=== PATIENT | female | born 1985 | race African-American/Black ===

== ENCOUNTER 2018-07-08 00:27 | Emergency (ER) | payer OTHER ==
[~2018-07-08] VITALS: Ht 157.5 cm; Wt 85.0 kg
[~2018-07-08 00:27] MED LIST: AZIT500T5; CIPR-263; DIF15; METR500T
[2018-07-08] MEDS ORDERED: SODIUM CHLORIDE 0.9% 1,000 ML IV ONE (00:56)
[2018-07-08 02:54] LABS: CHLORIDE 104 mEq/L (98-107)
[2018-07-08 03:00] LABS: D-DIMER 0.24 mg/L FEU (<0.50); PARTIAL THROMBOPLASTIN TIME 30.1 sec (23.4-31.0); PROTHROMBIN TIME 9.9 sec (9.1-11.1)
[2018-07-08 04:29] LABS: BASOPHILS % 0.3 % (0.0-2.0); EOSINOPHILS % 0.2 % (0.0-5.0); HEMATOCRIT. 37.9 % (36.0-48.0); HEMOGLOBIN. 11.9 g/dL (12.0-16.0); LYMPHOCYTES % 10.3 % (20.0-50.0); MEAN CORPUSCULAR HEMOGLOBIN 26.1 pg (28.0-32.0); MEAN PLATELET VOLUME 8.2 fl (7.4-10.4); MONOCYTES % 5.2 % (2.0-8.0); PLATELET 307 x1000/uL (130-400); RED BLOOD CELL COUNT 4.57 mill/uL (4.2-5.4); RED CELL DISTRIBUTION WIDTH 14.5 % (11.6-14.6)
[2018-07-08 04:33] VITALS: BP 154/83
== END 2018-07-08 05:03 | disposition home or self-care (01) ==
LOC: ER 00:27 → CANBEDREQ 08:08
DX: R07.89 Other chest pain (principal); Z98.890 Other specified postprocedural states; Z90.89 Acquired absence of other organs
CPT/HCPCS: 36415; 71045; 80053; 84484; 85025; 85379; 85610; 85730; 93005; 99284; J7030

== ENCOUNTER 2018-09-24 13:16 | Emergency (ER) | payer MEDICAID, OTHER ==
[~2018-09-24] VITALS: Ht 160 cm; Wt 89.0 kg
[2018-09-24 15:10] LABS: CLARITY URINE CLEAR (CLEAR); COLOR URINE YELLOW (YELLOW); KETONES URINE NEGATIVE (NEGATIVE); LEUKOCYTE ESTERASE URINE NEGATIVE (NEGATIVE); NITRITE URINE NEGATIVE (NEGATIVE); OCCULT BLOOD URINE NEGATIVE (NEGATIVE); PROTEIN URINE NEGATIVE (NEGATIVE); SPECIFIC GRAVITY URINE 1.004 (1.005-1.030); UROBILINOGEN URINE 0.2 E.U./dL (0.2-1.0)
[2018-09-24 16:06] VITALS: BP 152/91
== END 2018-09-24 16:14 | disposition left against medical advice (07) ==
LOC: ER 13:16
DX: Z53.21 Procedure and treatment not carried out due to patient leaving prior to being seen by health care provider (principal); F41.9 Anxiety disorder, unspecified
CPT/HCPCS: 81003; 93005; Z7610

== ENCOUNTER 2018-09-25 01:17 | Emergency (ER) | payer MEDICAID, OTHER ==
[~2018-09-25] VITALS: Ht 160 cm; Wt 88.0 kg
[2018-09-25 02:59] LABS: CLARITY URINE CLEAR (CLEAR); COLOR URINE YELLOW (YELLOW); KETONES URINE NEGATIVE (NEGATIVE); LEUKOCYTE ESTERASE URINE NEGATIVE (NEGATIVE); NITRITE URINE NEGATIVE (NEGATIVE); OCCULT BLOOD URINE NEGATIVE (NEGATIVE); PH URINE 6.5 (4.5-8.0); PROTEIN URINE NEGATIVE (NEGATIVE); SPECIFIC GRAVITY URINE 1.005 (1.005-1.030); UROBILINOGEN URINE 0.2 E.U./dL (0.2-1.0)
[2018-09-25 04:21] LABS: BASOPHILS % 0.4 % (0.0-2.0); HEMATOCRIT. 36.7 % (36.0-48.0); HEMOGLOBIN. 11.3 g/dL (12.0-16.0); LYMPHOCYTES % 19.5 % (20.0-50.0); MEAN CORPUSCULAR HEMOGLOBIN 25.1 pg (28.0-32.0); MEAN CORPUSCULAR VOLUME 81.1 fL (81.0-99.0); MEAN PLATELET VOLUME 8.4 fl (7.4-10.4); MONOCYTES % 5.4 % (2.0-8.0); NEUTROPHILS % 74.7 % (40.0-76.0); PLATELET 310 x1000/uL (130-400); RED BLOOD CELL COUNT 4.52 mill/uL (4.2-5.4); RED CELL DISTRIBUTION WIDTH 14.3 % (11.6-14.6)
[2018-09-25 04:24] LABS: CHLORIDE 107 mEq/L (98-107)
[2018-09-25] MEDS ORDERED: LORAZEPAM 1MG TABLET PO ONE (05:45)
[2018-09-25 06:37] VITALS: BP 134/83
== END 2018-09-25 06:39 | disposition home or self-care (01) ==
LOC: ER 01:17
DX: F41.9 Anxiety disorder, unspecified (principal); R00.2 Palpitations; R07.9 Chest pain, unspecified
CPT/HCPCS: 36415; 71045; 80048; 81025; 84443; 84484; 85379; 99284

== ENCOUNTER 2018-09-28 21:57 | Emergency (ER) | payer OTHER ==
[~2018-09-28] VITALS: Ht 160 cm; Wt 119.0 kg
[2018-09-28 23:12] VITALS: BP 139/97
== END 2018-09-28 23:50 | disposition left against medical advice (07) ==
LOC: ER 21:57
DX: R07.89 Other chest pain (principal); Z53.21 Procedure and treatment not carried out due to patient leaving prior to being seen by health care provider

== ENCOUNTER 2019-01-20 16:26 | Emergency (ER) | payer MEDICAID, OTHER ==
[~2019-01-20] VITALS: Ht 160 cm; Wt 83.0 kg
[2019-01-20] MEDS ORDERED: KETOROLAC 60MG/2ML VIAL IM ONE (18:30)
[2019-01-20] MEDS ORDERED: ONDANSETRON 4MG ODT PO ONE (18:30)
[2019-01-20 20:38] VITALS: BP 127/78
== END 2019-01-20 21:22 | disposition home or self-care (01) ==
LOC: ER 18:21
DX: K52.9 Noninfective gastroenteritis and colitis, unspecified (principal); R07.89 Other chest pain
CPT/HCPCS: 36415; 81025; 84484; 93005; 96372; 99284; J1885; Q0162; Z7610

== ENCOUNTER 2019-07-02 18:46 | Emergency (ER) | payer OTHER ==
[~2019-07-02] VITALS: Ht 160 cm; Wt 75.3 kg
[2019-07-02 20:37] VITALS: BP 147/83
== END 2019-07-03 01:18 | disposition left against medical advice (07) ==
LOC: ER 18:46
DX: R11.2 Nausea with vomiting, unspecified (principal); Z53.21 Procedure and treatment not carried out due to patient leaving prior to being seen by health care provider
CPT/HCPCS: Z7610 ×3

== ENCOUNTER 2019-07-03 11:20 | Emergency (ER) | payer OTHER ==
[~2019-07-03] VITALS: Ht 160 cm; Wt 75.0 kg
[2019-07-03] MEDS ORDERED: KETOROLAC 30MG/ML VIAL IV STA (12:51)
[2019-07-03] MEDS ORDERED: SODIUM CHLORIDE 0.9% 1,000 ML IV ONE (12:51)
[2019-07-03 14:57] LABS: CHLORIDE 108 mEq/L (98-107)
[2019-07-03 15:00] LABS: BASOPHILS % 0.5 % (0.0-2.0); EOSINOPHILS % 0.2 % (0.0-5.0); HCG SCREEN NEGATIVE; HEMATOCRIT. 38.3 % (36.0-48.0); HEMOGLOBIN. 12.1 g/dL (12.0-16.0); LYMPHOCYTES % 26.3 % (20.0-50.0); MEAN CORPUSCULAR HEMOGLOBIN 26.1 pg (28.0-32.0); MEAN CORPUSCULAR VOLUME 82.3 fL (81.0-99.0); MONOCYTES % 3.9 % (2.0-8.0); NEUTROPHILS % 69.1 % (40.0-76.0); PLATELET 288 x1000/uL (130-400); RED BLOOD CELL COUNT 4.65 mill/uL (4.2-5.4); RED CELL DISTRIBUTION WIDTH 14.1 % (11.6-14.6)
[2019-07-03 16:10] VITALS: BP 126/87
== END 2019-07-03 17:32 | disposition home or self-care (01) ==
LOC: ER 11:20
DX: R07.89 Other chest pain (principal); R42 Dizziness and giddiness; M79.18 Myalgia, other site; Z98.890 Other specified postprocedural states; Z79.899 Other long term (current) drug therapy
CPT/HCPCS: 36415; 71045; 80053; 84703; 85025; 93005; 96361; 96374; 99284; J1885; J7030

== ENCOUNTER 2019-11-30 10:32 | Emergency (ER) | payer OTHER ==
[~2019-11-30] VITALS: Ht 160 cm; Wt 78.0 kg
[~2019-11-30 10:32] MED LIST changes: -AZIT500T5; +AZIT500T8
[2019-11-30] MEDS ORDERED: SODIUM CHLORIDE 0.9% 1,000 ML IV ONE (11:12)
[2019-11-30] MEDS ORDERED: KETOROLAC 30MG/ML VIAL IV STA (11:12)
[2019-11-30 11:55] LABS: BASOPHILS % 0.5 % (0.0-2.0); EOSINOPHILS % 0.6 % (0.0-5.0); HEMATOCRIT. 39.4 % (36.0-48.0); HEMOGLOBIN. 12.7 g/dL (12.0-16.0); LYMPHOCYTES % 21.8 % (20.0-50.0); MEAN CORPUSCULAR HEMOGLOBIN 26.9 pg (28.0-32.0); MEAN CORPUSCULAR VOLUME 83.4 fL (81.0-99.0); MONOCYTES % 6.9 % (2.0-8.0); NEUTROPHILS % 70.2 % (40.0-76.0); PLATELET 399 x1000/uL (130-400); RED BLOOD CELL COUNT 4.73 mill/uL (4.2-5.4); RED CELL DISTRIBUTION WIDTH 13.5 % (11.6-14.6)
[2019-11-30 12:49] LABS: CHLORIDE 106 mEq/L (98-107)
[2019-11-30 12:58] LABS: *AMPHETAMINES SCREEN URINE NEGATIVE (NEGATIVE); *BARBITURATES SCREEN URINE NEGATIVE (NEGATIVE); *COCAINE SCREEN URINE NEGATIVE (NEGATIVE); METHADONE URINE SCREEN NEGATIVE (NEGATIVE)
[2019-11-30 12:59] LABS: CANNABINOID URINE SCREEN NEGATIVE (NEGATIVE); OPIATES URINE SCREEN NEGATIVE (NEGATIVE); PHENCYCLIDINE URINE SCREEN NEGATIVE (NEGATIVE)
[2019-11-30 13:00] LABS: *BENZODIAZEPINES SCREEN URINE PRESUMTIVE POSITIVE (NEGATIVE)
[2019-11-30 14:31] VITALS: BP 120/75
[2019-11-30] MEDS ORDERED: IOHEXOL-350 100 ML BOTTLE ONE (14:33)
[2019-11-30] MEDS ORDERED: MAGNESIUM/ALUMINUM HYDROXIDE/SIMETHICONE 30ML UDC PO ONE (14:45)
== END 2019-11-30 15:09 | disposition home or self-care (01) ==
LOC: ER 10:32
DX: R07.89 Other chest pain (principal); R10.13 Epigastric pain; K21.9 Gastro-esophageal reflux disease without esophagitis; I10 Essential (primary) hypertension; F41.9 Anxiety disorder, unspecified; Z98.890 Other specified postprocedural states
CPT/HCPCS: 36415; 71045; 71275; 80053; 80305; 81025; 83690; 83880; 84484; 85025; 85379; 93005; 93970; 96374; 99285; J1885; J7030; Q9967

== ENCOUNTER 2021-07-17 20:47 | Emergency (ER) | payer OTHER, MEDICAID ==
[~2021-07-17] VITALS: Ht 160 cm; Wt 83.0 kg
[2021-07-17 22:00] VITALS: BP 134/76
[2021-07-17] MEDS ORDERED: LIDOCAINE 5% PATCH TOP SCH (22:00)
[2021-07-17] MEDS ORDERED: IBUPROFEN 400MG TABLET PO ONE (22:00)
[2021-07-17] MEDS ORDERED: METHOCARBAMOL 500MG TABLET PO ONE (22:00)
[2021-07-17] MEDS ORDERED: METH-653 MT (22:01)
[2021-07-17] MEDS ORDERED: LIDO1ADH23 TP (22:01)
[2021-07-17] MEDS ORDERED: TOPUD PO (22:01)
[2021-07-17] MEDS ORDERED: IBUP-2028 MT (22:01)
== END 2021-07-17 23:02 | disposition home or self-care (01) ==
LOC: ER 20:47
DX: S13.4XXA Sprain of ligaments of cervical spine, initial encounter (principal); Z98.890 Other specified postprocedural states; V43.52XA Car driver injured in collision with other type car in traffic accident, initial encounter; Y93.89 Activity, other specified; Y92.488 Other paved roadways as the place of occurrence of the external cause
CPT/HCPCS: 81025; 99284

== ENCOUNTER 2025-05-25 10:09 | Emergency (ER) | payer MEDICAID, OTHER ==
[~2025-05-25] VITALS: Ht 167.6 cm; Wt 91.0 kg
[~2025-05-25 10:09] MED LIST changes: +IBUP-2028 MT; +LIDO1ADH23 TP; +METH-653 MT; +TOPUD PO
[2025-05-25 10:16] VITALS: TEMP 36.7; O2SAT 96
[2025-05-25] MEDS ORDERED: ACET-2708 MT (12:07)
[2025-05-25 12:21] VITALS: BP 139/89; PULSE 78; RESP 18; O2SAT 100
[2025-05-25] MEDS: ACETAMINOPHEN 500MG TABLET PO ONE (12:31)
[2025-05-25] MEDS: KETOROLAC 30MG/ML VIAL IM ONE (12:32)
== END 2025-05-25 12:33 | disposition home or self-care (01) ==
LOC: ER 10:09
DX: M79.645 Pain in left finger(s) (principal); I10 Essential (primary) hypertension; Z98.890 Other specified postprocedural states; Z79.899 Other long term (current) drug therapy
CPT/HCPCS: 29125; 73130; 99283